=== PATIENT | male | born 1975 | race Hispanic/Latino ===

== ENCOUNTER 2021-04-27 17:35 | Emergency (ER) | payer SELFPAY ==
[2021-04-27] MEDS ORDERED: NALOXONE 2 MG/2 ML INJ ONE (17:42)
[2021-04-27 17:43] VITALS: BP 147/87
[2021-04-27] MEDS ORDERED: NALOXONE 2 MG/2 ML INJ IV STA (18:08)
--- NOTE | 2021-04-27 18:35 | Emergency Department Report ---
History of Present Illness - General Chief Complaint: Overdose Stated Complaint: OVERDOSE Time Seen by Provider: 04/27/21 18:05 Source: patient, EMS Mode of arrival: Stretcher Limitations: Altered Mental Status - History of Present Illness Initial Comments: Chief complaint: Possible overdose HPI: This 45-year-old male with unknown past medical history who presents with decreased level consciousness agonal breathing. Patient was found slumped over a car at a gas station. He revived with 2 mg of naloxone. He then became somnolent again. In this emergency department, we administered another 2 mg of Narcan. He is arousable. He declines to tell me or staff member what he took. He states that "I drank a little bit". He denies suicidal ideation. MD Complaint: accidental overdose Intent: unwilling to say How Overdose Was Discovered: family/friend present Treatments Prior to Arrival: narcan - Related Data Allergies Allergy/AdvReac Type Severity Reaction Status Date / Time No Known Allergies Allergy Verified 04/27/21 18:07 ED Review of Systems ROS: Stated complaint: OVERDOSE Other details as noted in HPI Comment: All other systems reviewed and negative Constitutional: denies: chills, fever Respiratory: denies: cough, shortness of breath Cardiovascular: denies: chest pain ED Past Medical Hx - Past Medical History Previous Medical History?: No - Surgical History Past Surgical History?: No Hx Pacemaker: No - Social History Smoking Status: Unknown if ever smoked Substance Use Type: Alcohol ED Physical Exam - General Limitations: Altered Mental Status General appearance: lethargic, other (Mouth open sonorous respirations) - Head Head exam: Present: atraumatic, normocephalic - Eye Eye exam: Present: normal appearance - ENT ENT exam: Present: mucous membranes moist - Neck Neck exam: Present: normal inspection, full ROM - Respiratory Respiratory exam: Present: normal lung sounds bilaterally. Absent: respiratory distress, wheezes, rales, rhonchi - Cardiovascular Cardiovascular Exam: Present: regular rate, normal rhythm, normal heart sounds. Absent: systolic murmur, diastolic murmur, rubs, gallop - GI/Abdominal GI/Abdominal exam: Present: soft, normal bowel sounds. Absent: distended, tenderness, guarding, rebound - Rectal Rectal exam: Present: deferred - Extremities Exam Extremities exam: Present: normal inspection - Neurological Exam Neurological exam: Present: alert, oriented X3, other (Once awake patient is oriented x3) - Psychiatric Psychiatric exam: Present: normal affect, normal mood - Skin Skin exam: Present: warm, dry, intact, normal color. Absent: rash ED Course Vital Signs 04/27/21 04/27/21 17:43 18:02 Blood Pressure 147/87 [Right] O2 Sat by Pulse 100 Oximetry ED Medical Decision Making - Lab Data Result diagrams: 04/27/21 18:56 04/27/21 18:56 - Medical Decision Making Likely accidental overdose, patient advised momentarily with IV naloxone. He received a second dose of IV naloxone. I suspect opioid type medication in addition to coingestions such as alcohol. Patient admitted to "drinking a little bit". CBC nonspecific leukocytosis. No evidence of infection clinically. Blood alcohol screen negative. Salicylate acetaminophen screen negative. Chemistry within normal limits. Patient eloped without appropriate disposition. Charge nurse witnessed patient walking steadily to the bathroom before elopement. Critical care attestation.: If time is entered above; I have spent that time in minutes in the direct care of this critically ill patient, excluding procedure time. ED Disposition Clinical Impression: Accidental overdose, Delirium, induced by drug Disposition: 07 LEFT AWOL/ELOPED Is pt being admited?: No Does the pt Need Aspirin: No Condition: Stable
[2021-04-27 19:27] LABS: BUN/Creatinine Ratio 19; Blood Urea Nitrogen 21 mg/dL (9-20); Calcium 8.7 mg/dL (8.4-10.2); Hemolysis Index 22
[2021-04-27 19:29] LABS: Basophils % (Auto) 0.3 % (0.0-1.8); Eosinophils # (Auto) 0.1 K/mm3 (0.0-0.4); Eosinophils % (Auto) 0.5 % (0.0-4.3); Hematocrit 50.6 % (35.5-45.6); Hemoglobin 16.3 gm/dl (11.8-15.2); Lymphocytes # (Auto) 1.1 K/mm3 (1.2-5.4); Lymphocytes % (Auto) 7.2 % (13.4-35.0); Mean Corpuscular HGB Conc 32 % (32-34); Mean Corpuscular Volume 95 fl (84-94); Monocytes # (Auto) 0.9 K/mm3 (0.0-0.8); Monocytes % (Auto) 6.1 % (0.0-7.3); Platelet Count 313 K/mm3 (140-440); Red Blood Count 5.35 M/mm3 (3.65-5.03); Red Cell Distribution Width 12.9 % (13.2-15.2)
== END 2021-04-27 20:50 | disposition left against medical advice (07) ==
LOC: ED 17:35
DX: T50.7X1A Poisoning by analeptics and opioid receptor antagonists, accidental (unintentional), initial encounter (principal); Y92.89 Other specified places as the place of occurrence of the external cause; R41.0 Disorientation, unspecified; G25.70 Drug induced movement disorder, unspecified
CPT/HCPCS: 36415; 80048; 82962; 85025; 96374; 99284; J2310; 80320; G0480

== ENCOUNTER 2021-12-11 12:07 | Emergency (ER) | payer SELFPAY | END 2021-12-12 03:00 | disposition left against medical advice (07) | LOC: ED 12:07 | DX: S69.90XA Unspecified injury of unspecified wrist, hand and finger(s), initial encounter (principal); Z53.21 Procedure and treatment not carried out due to patient leaving prior to being seen by health care provider; X58.XXXA Exposure to other specified factors, initial encounter; Y93.89 Activity, other specified; Y92.89 Other specified places as the place of occurrence of the external cause; Y99.8 Other external cause status ==